=== PATIENT | female | born 1990 | race African-American/Black ===

== ENCOUNTER 2020-01-14 19:52 | Observation (INO) | payer MEDICAID ==
[~2020-01-14] VITALS: Ht 154.9 cm; Wt 66.2 kg
[2020-01-14] MEDS ORDERED: Morphine Sulfate 4mg/ml Inj (IV USE ONLY) IVP ONE (20:00)
--- NOTE | 2020-01-14 20:01 | Emergency Room Report ---
History of Present Illness General Chief Complaint: Complications Source: Patient Present Illness HPI Patient is a 29-year-old female approximately 13 weeks who presents to the ER complaining of suprapubic cramping and vaginal bleeding for 1 week. Patient states that she was told that she was having a miscarriage. She has had 2 prior miscarriages. She states that she was supposed to be admitted to an outside facility for D&C but was afraid of having surgery. She states that today her cramping increased and she had passage of a blood clot from her vagina. She denies any fever or chills. She denies any nausea or vomiting. Patient is G 10 P3 with 3 miscarriages and 3 abortions. Patient was brought in by paramedics. 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 Patient History Now: Yes Reviewed Nursing Documentation: PMH: Agreed; PSxH: Agreed Review of Systems All Other Systems: negative except mentioned in HPI Physical Exam Vital Signs Date Time Temp Pulse Resp B/P (MAP) Pulse Ox O2 Delivery O2 Flow Rate FiO2 01/14/20 19:48 98.6 80 20 123/53 (76) 98 Room Air Sp02 EP Interpretation: reviewed, normal General Appearance: no apparent distress, alert, GCS 15, non-toxic Head: normocephalic, atraumatic Eyes: bilateral eye normal inspection, bilateral eye PERRL ENT: hearing grossly normal, normal pharynx, no angioedema, normal voice Neck: full range of motion, supple/symm/no masses Respiratory: chest non-tender, lungs clear, normal breath sounds, speaking full sentences Cardiovascular #1: regular rate, rhythm, no edema Gastrointestinal: soft, no guarding, no rebound, other - Suprapubic tenderness to palpation Rectal: deferred Genitourinary: no CVA tenderness, other - Patient had about 400 cc of bright red blood from her vagina throughout her ER stay Musculoskeletal: normal range of motion, no calf tenderness Neurologic: motor strength/tone normal, oriented x3 Psychiatric: no suicidal/homicidal ideation Skin: no rash Lymphatic: no adenopathy Procedures Critical Care Time Critical Care Time Total critical care time: Approximately 35 minutes. Due to a high probability of clinically significant, life threatening deterioration, the patient required my highest level of preparedness to intervene emergently and I personally spent this critical care time directly and personally managing the patient. This critical care time included obtaining a history; examining the patient; pulse oximetry; ordering and review of studies; arranging urgent treatment with development of a management plan; evaluation of patient's response to treatment ; frequent reassessment; and, discussions with other providers.This critical care time was performed to assess and manage the high probability of imminent, life-threatening deterioration that could result in multi-organ failure. It was exclusive of separately billable procedures and treating other patients and teaching time. Please see MDM section and the rest of the note for further information on patient assessment and treatment. Medical Decision Making Diagnostic Impression: Primary Impression: Retained products of conception Additional Impressions: Hypokalemia Vaginal bleeding ER Course rad tech states the ultrasound looks like retained products of conception. Paging Dr. Coello who is on-call for SACK SORTER at 9:10 PM. I spoke with Dr. Coello at 9:57 PM. He states that he will take the patient to the OR. Patient has been preop and kept n.p.o. He will call in the operating room team at this time. Laboratory Tests Test 01/14/20 20:15 White Blood Count 8.3 K/UL (4.8-10.8) Red Blood Count 4.18 M/UL (4.20-5.40) L Hemoglobin 12.9 G/DL (12.0-16.0) Hematocrit 38.1 % (37.0-47.0) Mean Corpuscular Volume 91 FL (80-99) Mean Corpuscular Hemoglobin 30.8 PG (27.0-31.0) Mean Corpuscular Hemoglobin Concent 33.9 G/DL (32.0-36.0) Red Cell Distribution Width 13.5 % (11.6-14.8) Platelet Count 227 K/UL (150-450) Mean Platelet Volume 7.3 FL (6.5-10.1) Neutrophils (%) (Auto) 64.3 % (45.0-75.0) Lymphocytes (%) (Auto) 30.1 % (20.0-45.0) Monocytes (%) (Auto) 4.3 % (1.0-10.0) Eosinophils (%) (Auto) 0.6 % (0.0-3.0) Basophils (%) (Auto) 0.8 % (0.0-2.0) Prothrombin Time 11.9 SEC (9.30-11.50) H Prothrombin Time INR 1.1 (0.9-1.1) Activated Partial Thromboplast Time 24 SEC (23-33) Fibrinogen 369 mg/dL (200-400) Urine Color Red Urine Appearance Very cloudy Urine pH 5 (4.5-8.0) Urine Specific [place] 1.025 (1.005-1.035) Urine Protein 3+ (NEGATIVE) H Urine Glucose (UA) Negative (NEGATIVE) Urine Ketones 4+ (NEGATIVE) H Urine Blood 5+ (NEGATIVE) H Urine Nitrite Negative (NEGATIVE) Urine Bilirubin Negative (NEGATIVE) Urine Urobilinogen 1 MG/DL (0.0-1.0) H Urine Leukocyte Esterase 2+ (NEGATIVE) H Urine RBC Tntc /HPF (0 - 2) H Urine WBC 5-10 /HPF (0 - 2) H Urine Squamous Epithelial Cells Few /LPF (NONE/OCC) Urine Bacteria Few /HPF (NONE) Sodium Level 136 MMOL/L (136-145) Potassium Level 3.1 MMOL/L (3.5-5.1) L Chloride Level 102 MMOL/L (98-107) Carbon Dioxide Level 22 MMOL/L (21-32) Anion Gap 12 mmol/L (5-15) Blood Urea Nitrogen 9 mg/dL (7-18) Creatinine 0.8 MG/DL (0.55-1.30) Estimated Glomerular Filtration Rate > 60 mL/min (>60) Glucose Level 108 MG/DL (74-106) H Calcium Level 9.2 MG/DL (8.5-10.1) Total Bilirubin 0.3 MG/DL (0.2-1.0) Aspartate Amino Transferase (AST) 9 U/L (15-37) L Alanine Aminotransferase (ALT) 13 U/L (12-78) Alkaline Phosphatase 39 U/L (46-116) L Total Protein 7.8 G/DL (6.4-8.2) Albumin 4.3 G/DL (3.4-5.0) Globulin 3.5 g/dL Albumin/Globulin Ratio 1.2 (1.0-2.7) Lipase 50 U/L (73-393) L Human Chorionic Gonadotropin, Quant 946 mIU/mL (1-6) H Urine Opiates Screen Negative (NEGATIVE) Urine Barbiturates Screen Negative (NEGATIVE) Phencyclidine (PCP) Screen Negative (NEGATIVE) Urine Amphetamines Screen Negative (NEGATIVE) Urine Benzodiazepines Screen Negative (NEGATIVE) Urine Cocaine Screen Negative (NEGATIVE) Urine Marijuana (THC) Screen Positive (NEGATIVE) H EKG Diagnostic Results EKG Time: 22:04 EP Interpretation: Leah South MD Rate: normal - 82 bpm Rhythm: NSR ST Segments: no acute changes ASA given to the pt in ED: No Rhythm Strip Diag. Results Rhythm Strip Time: 21:57 EP Interpretation: yes - Leah South MD Rate: 72 bpm Rhythm: NSR, no PVC's, no ectopy Last Vital Signs Date Time Temp Pulse Resp B/P (MAP) Pulse Ox O2 Delivery O2 Flow Rate FiO2 01/14/20 19:48 98.6 80 20 123/53 (76) 98 Room Air Disposition: ADMITTED INPATIENT Condition: Critical Signed Out To: Awaiting insurance approval for admission. Patient signed out to Dr. Norris Additional Instructions: Please note that this report is being documented using [email or web address] technology. This can lead to erroneous entry secondary to incorrect interpretation by the dictating instrument. Leah South M.D. Jan 14, 2020 20:01
[2020-01-14 20:54] LABS: ANION GAP 12 mmol/L (5-15); BLOOD UREA NITROGEN 9 mg/dL (7-18); CALCIUM 9.2 MG/DL (8.5-10.1); CARBON DIOXIDE 22 MMOL/L (21-32); CHLORIDE 102 MMOL/L (98-107); CREATININE 0.8 MG/DL (0.55-1.30); POTASSIUM 3.1 MMOL/L (3.5-5.1); SODIUM 136 MMOL/L (136-145)
[2020-01-14 20:56] LABS: APPEARANCE,URINE VERY CLOUDY; BILIRUBIN, URINE NEGATIVE (NEGATIVE); GLUCOSE, URINE (UA) NEGATIVE (NEGATIVE); KETONES,URINE 4+ (NEGATIVE); LEUKOCYTE ESTERASE ,URINE 2+ (NEGATIVE); NITRITE,URINE NEGATIVE (NEGATIVE); PH,URINE 5 (4.5-8.0); PROTEIN,URINE 3+ (NEGATIVE); UROBILINOGEN,URINE 1 MG/DL (0.0-1.0)
[2020-01-14 20:59] LABS: ALANINE AMINOTRANSFERASE 13 U/L (12-78); ALBUMIN 4.3 G/DL (3.4-5.0); ALBUMIN/GLOBULIN RATIO 1.2 (1.0-2.7); ALKALINE PHOSPHATASE 39 U/L (46-116); ASPARTATE AMINO TRANSFERASE 9 U/L (15-37); BILIRUBIN,TOTAL 0.3 MG/DL (0.2-1.0); COLOR,URINE RED
[2020-01-14 21:08] LABS: INR 1.1 (0.9-1.1)
[2020-01-14 21:10] LABS: BASOPHILS % (AUTO) 0.8 % (0.0-2.0); EOSINOPHILS % (AUTO) 0.6 % (0.0-3.0); HEMATOCRIT 38.1 % (37.0-47.0); HEMOGLOBIN 12.9 G/DL (12.0-16.0); LYMPHOCYTES % (AUTO) 30.1 % (20.0-45.0); MEAN CORPUSCULAR VOLUME 91 FL (80-99); MONOCYTES % (AUTO) 4.3 % (1.0-10.0); NEUTROPHILS % (AUTO) 64.3 % (45.0-75.0); PLATELET COUNT 227 K/UL (150-450); RED BLOOD COUNT 4.18 M/UL (4.20-5.40); RED CELL DISTRIBUTION WIDTH 13.5 % (11.6-14.8); WHITE BLOOD COUNT 8.3 K/UL (4.8-10.8)
[2020-01-14 22:39] VITALS: BP 131/64
[2020-01-14] MEDS ORDERED: Sterile Water Irrig 1000ml IRRIG ONE (23:00)
[2020-01-14] MEDS ORDERED: NS Irrig 1000ml ONE (23:00)
[2020-01-14] MEDS ORDERED: Oxytocin 10 units/vial ONE (23:22)
[2020-01-14] MEDS ORDERED: Methylergonovine 0.2mg/ml Inj IM ONE (23:22)
[2020-01-14 23:44] VITALS: BP 122/69
[2020-01-14] MEDS ORDERED: Midazolam 2mg/2ml Inj ONE (23:44)
[2020-01-14] MEDS ORDERED: fentaNYL 100 mcg/2 mL IV ONE (23:44)
[2020-01-15] VITALS (10 sets, daily range): BP systolic 88–105; BP diastolic 43–66
[2020-01-15] MEDS ORDERED: Lidocaine 1% MPF 10mg/ml 5ml ONE (00:14)
[2020-01-15] MEDS ORDERED: Ketorolac 30mg Inj ONE (00:14)
--- NOTE | 2020-01-15 00:16 | Pre-Procedure Note/Attestation ---
Pre-Procedure Note/Attestation Complete Prior to Procedure Planned Procedure: not applicable Procedure Narrative: Dilation and Curettage Indications for Procedure Pre-Operative Diagnosis: Incomplete Attestation I attest that I discussed the nature of the procedure; its benefits; risks and complications; and alternatives (and the risks and benefits of such alternatives ), prior to the procedure, with the patient (or the patient's legal auto claim representative). I attest that, if there was a reasonable possibility of needing a blood transfusion, the patient (or the patient's legal auto claim representative) was given the [facility] standardized written summary, pursuant to the Angel Mansi Blood Safety Act ([place] Health and Safety Code # 1645, as amended). I attest that I re-evaluated the patient just prior to the surgery and that there has been no change in the patient's H&P, except as documented below: Flako Coello MD Jan 15, 2020 00:16
--- NOTE | 2020-01-15 00:20 | Brief Operative Note ---
Immediate Post Operative Note Operative Note Pre-op Diagnosis: Incomplete Procedure: D&C Post-op Diagnosis: Incomplete , large amount of retained POCs Post-op Diagnosis: same as pre-op Surgeon: Flako Coello Anesthesiologist: Luana Nicole Anesthesia: MAC Specimen: yes - POCs Complications: none Condition: stable Fluids: LR @125 cc/hr Estimated Blood Loss: minimal Drains: none Implant(s) used?: No Flako Coello MD Jan 15, 2020 00:20
[2020-01-15] MEDS ORDERED: fentaNYL 100 mcg/2 mL IV PRN (00:30)
[2020-01-15] MEDS ORDERED: HYDROcodone/Acetamin 5/325 tab ORAL PRN (00:30)
--- NOTE | 2020-01-15 00:35 | Immediate Post-Op Evaluation ---
Immediate Post-Op Evalulation Immediate Post-Op Evalulation Procedure: D&C Date of Evaluation: Jan 15, 2020 Time of Evaluation: 00:28 IV Fluids: 800 Blood Pressure Systolic: 101 Blood Pressure Diastolic: 43 Pulse Rate: 95 Respiratory Rate: 14 O2 Sat by Pulse Oximetry: 99 Nausea: No Vomiting: No Patient Status: awake, reacts, patent Hydration Status: adequate Drug: ancef Given Within 1 Hr of Incision: Yes Time Given: 23:50 Luana Brizuela CRNA Jan 15, 2020 00:35
--- NOTE | 2020-01-15 00:35 | Short Stay Surgery H&P ---
History of Present Illness History of Present Illness HPI Edy Sue is a 29 year old female who was admitted on Jan 14, 2020 at 22:17 for Retained Products Of Conception Patient History Allergies: Coded Allergies: No Known Allergies (Unverified , 01/14/20) PAST MEDICAL HISTORY: (1) Retained products of conception Review of Systems Cardiovascular: Denies: no symptoms, see HPI, hypertension, CAD - stable, angina, [place], CABG, dysrhythmia, CHF, valvular disease, rheumatic heart disease, peripheral vascular disease, source of infx - skin, source of infx-indw cath, source of infx-prosthesis, other Respiratory: Denies: no symptoms, see HPI, asthma, chronic bronchitis, pneumonia, COPD, URI, tuberculosis, sleep apnea, CPAP, home 02, other Skeletal: Denies: no symptoms, see HPI, osteroarthritis, rheumatoid arthritis, spinal disc disease, trauma, other Gastrointestinal: Denies: no symptoms, see HPI, obesity, peptic ulcer disease, gastro esophageal reflux disease, hiatal hernia, jaundice, hepatitis A,B,C, other Genitourinary: Denies: no symptoms, see HPI, renal insufficiency, endstage renal disease, dialysis, UTI, urinary retention, BPH, other Neurologic: Denies: no symptoms, see HPI, seizure, stroke/TIA, neuropathy, neuro muscular disease, other Endocrine: Denies: no symptoms, see HPI, diabetes - type 1, diabetes - type 2, thyroid, post menopausal, other Hematologic: Denies: no symptoms, see HPI, anemia, coagulopathy, prior transfusion, other Physical Exam Vital Signs Last Vital Signs Date Time Temp Pulse Resp B/P (MAP) Pulse Ox O2 Delivery O2 Flow Rate FiO2 01/14/20 23:45 98.6 82 18 122/69 99 Room Air Labs Laboratory Tests Test 01/14/20 20:15 White Blood Count 8.3 K/UL (4.8-10.8) Red Blood Count 4.18 M/UL (4.20-5.40) L Hemoglobin 12.9 G/DL (12.0-16.0) Hematocrit 38.1 % (37.0-47.0) Mean Corpuscular Volume 91 FL (80-99) Mean Corpuscular Hemoglobin 30.8 PG (27.0-31.0) Mean Corpuscular Hemoglobin Concent 33.9 G/DL (32.0-36.0) Red Cell Distribution Width 13.5 % (11.6-14.8) Platelet Count 227 K/UL (150-450) Mean Platelet Volume 7.3 FL (6.5-10.1) Neutrophils (%) (Auto) 64.3 % (45.0-75.0) Lymphocytes (%) (Auto) 30.1 % (20.0-45.0) Monocytes (%) (Auto) 4.3 % (1.0-10.0) Eosinophils (%) (Auto) 0.6 % (0.0-3.0) Basophils (%) (Auto) 0.8 % (0.0-2.0) Prothrombin Time 11.9 SEC (9.30-11.50) H Prothromb Time International Ratio 1.1 (0.9-1.1) Activated Partial Thromboplast Time 24 SEC (23-33) Fibrinogen 369 mg/dL (200-400) Urine Color Red Urine Appearance Very cloudy Urine pH 5 (4.5-8.0) Urine Specific [place] 1.025 (1.005-1.035) Urine Protein 3+ (NEGATIVE) H Urine Glucose (UA) Negative (NEGATIVE) Urine Ketones 4+ (NEGATIVE) H Urine Blood 5+ (NEGATIVE) H Urine Nitrite Negative (NEGATIVE) Urine Bilirubin Negative (NEGATIVE) Urine Urobilinogen 1 MG/DL (0.0-1.0) H Urine Leukocyte Esterase 2+ (NEGATIVE) H Urine RBC Tntc /HPF (0 - 2) H Urine WBC 5-10 /HPF (0 - 2) H Urine Squamous Epithelial Cells Few /LPF (NONE/OCC) Urine Bacteria Few /HPF (NONE) Sodium Level 136 MMOL/L (136-145) Potassium Level 3.1 MMOL/L (3.5-5.1) L Chloride Level 102 MMOL/L (98-107) Carbon Dioxide Level 22 MMOL/L (21-32) Anion Gap 12 mmol/L (5-15) Blood Urea Nitrogen 9 mg/dL (7-18) Creatinine 0.8 MG/DL (0.55-1.30) Estimat Glomerular Filtration Rate > 60 mL/min (>60) Glucose Level 108 MG/DL (74-106) H Calcium Level 9.2 MG/DL (8.5-10.1) Total Bilirubin 0.3 MG/DL (0.2-1.0) Aspartate Amino Transf (AST/SGOT) 9 U/L (15-37) L Alanine Aminotransferase (ALT/SGPT) 13 U/L (12-78) Alkaline Phosphatase 39 U/L (46-116) L Total Protein 7.8 G/DL (6.4-8.2) Albumin 4.3 G/DL (3.4-5.0) Globulin 3.5 g/dL Albumin/Globulin Ratio 1.2 (1.0-2.7) Lipase 50 U/L (73-393) L Human Chorionic Gonadotropin, Quant 946 mIU/mL (1-6) H Urine Opiates Screen Negative (NEGATIVE) Urine Barbiturates Screen Negative (NEGATIVE) Phencyclidine (PCP) Screen Negative (NEGATIVE) Urine Amphetamines Screen Negative (NEGATIVE) Urine Benzodiazepines Screen Negative (NEGATIVE) Urine Cocaine Screen Negative (NEGATIVE) Urine Marijuana (THC) Screen Positive (NEGATIVE) H Skin: normal HENT: normal Heart: normal Lungs: normal Abdomen: normal Extremities: normal Genitourinary: abnormal - Enlarged uterus, uterine bleeding Plan Plan of Care Urgent D&C Summary of Findings IUP, incomplete , Active Uterine Bleeding Attestation Are the patient's medical conditions optimized for surgery? Attestation Response: yes Flako Coello MD Jan 15, 2020 00:35
--- NOTE | 2020-01-15 00:39 | Anethesia Preoperative Eval ---
Anesthesia Pre-op PMH/ROS General Date of Evaluation: Jan 15, 2020 Time of Evaluation: 23:45 Anesthesiologist: debra ASA Score: ASA 2 Mallampati Score Class I : Soft palate, uvula, fauces, pillars visible Class II: Soft palate, uvula, fauces visible Class III: Soft palate, base of uvula visible Class IV: Only hard plate visible Mallampati Classification: Class II Surgeon: Oumou Diagnosis: Retained product of conception Surgical Procedure: D&C Anesthesia History: none Family History: no anesthesia problems Allergies: Coded Allergies: No Known Allergies (Unverified , 01/14/20) Medications: see eMAR Patient NPO?: Yes NPO Date: Jan 15, 2020 NPO Time: 08:00 Past Medical History Cardiovascular: Denies: HTN, CAD, [place], valve dz, arrhythmia, other Pulmonary: Denies: asthma, COPD, BRENDA, other Gastrointestinal/Genitourinary: Denies: GERD, CRI, ESRD, other Neurologic/Psychiatric: Denies: dementia, CVA, depression/anxiety, TIA, other HEENT: Denies: cataract (L), cataract (R), glaucoma, KAKE (L), KAKE (R), other Hematology/Immune: Reports: anemia PSxH Narrative: c/s Anesthesia Pre-op Phys. Exam Physician Exam Last Vital Signs Date Time Temp Pulse Resp B/P (MAP) Pulse Ox O2 Delivery O2 Flow Rate FiO2 01/14/20 23:45 98.6 82 18 122/69 99 Room Air Constitutional: NAD Neurologic: CN 2-12 intact Cardiovascular: RRR Gastrointestinal: S/NT/ND Airway Exam Mallampati Classification 2 Mallampati Score: Class II MO: full ROM: full Anesthesia Pre-op A/P Labs Hematology Test 01/14/20 20:15 White Blood Count 8.3 K/UL (4.8-10.8) Red Blood Count 4.18 M/UL (4.20-5.40) L Hemoglobin 12.9 G/DL (12.0-16.0) Hematocrit 38.1 % (37.0-47.0) Mean Corpuscular Volume 91 FL (80-99) Mean Corpuscular Hemoglobin 30.8 PG (27.0-31.0) Mean Corpuscular Hemoglobin Concent 33.9 G/DL (32.0-36.0) Red Cell Distribution Width 13.5 % (11.6-14.8) Platelet Count 227 K/UL (150-450) Mean Platelet Volume 7.3 FL (6.5-10.1) Neutrophils (%) (Auto) 64.3 % (45.0-75.0) Lymphocytes (%) (Auto) 30.1 % (20.0-45.0) Monocytes (%) (Auto) 4.3 % (1.0-10.0) Eosinophils (%) (Auto) 0.6 % (0.0-3.0) Basophils (%) (Auto) 0.8 % (0.0-2.0) Coagulation Test 01/14/20 20:15 Prothrombin Time 11.9 SEC (9.30-11.50) H Prothromb Time International Ratio 1.1 (0.9-1.1) Activated Partial Thromboplast Time 24 SEC (23-33) Fibrinogen 369 mg/dL (200-400) Chemistry Test 01/14/20 20:15 Sodium Level 136 MMOL/L (136-145) Potassium Level 3.1 MMOL/L (3.5-5.1) L Chloride Level 102 MMOL/L (98-107) Carbon Dioxide Level 22 MMOL/L (21-32) Anion Gap 12 mmol/L (5-15) Blood Urea Nitrogen 9 mg/dL (7-18) Creatinine 0.8 MG/DL (0.55-1.30) Estimat Glomerular Filtration Rate > 60 mL/min (>60) Glucose Level 108 MG/DL (74-106) H Calcium Level 9.2 MG/DL (8.5-10.1) Total Bilirubin 0.3 MG/DL (0.2-1.0) Aspartate Amino Transf (AST/SGOT) 9 U/L (15-37) L Alanine Aminotransferase (ALT/SGPT) 13 U/L (12-78) Alkaline Phosphatase 39 U/L (46-116) L Total Protein 7.8 G/DL (6.4-8.2) Albumin 4.3 G/DL (3.4-5.0) Globulin 3.5 g/dL Albumin/Globulin Ratio 1.2 (1.0-2.7) Lipase 50 U/L (73-393) L Human Chorionic Gonadotropin, Quant 946 mIU/mL (1-6) H Studies Pre-op Studies: EKG - SR Risk Assessment & Plan Assessment: covid Plan: MAC Status Change Before Surgery: No Pre-Antibiotics Drug: ancef Given Within 1 Hr of Incision: Yes Time Given: 23:45 Luana Brizuela CRNA Jan 15, 2020 00:39
--- NOTE | 2020-01-15 00:41 | 48 Hour Post Anesthesia Eval ---
Post Anesthesia Evaluation Procedure: D&C Date of Evaluation: Jan 15, 2020 Time of Evaluation: 00:40 Blood Pressure Systolic: 110 0: 60 Pulse Rate: 75 Respiratory Rate: 14 O2 Sat by Pulse Oximetry: 98 Airway: patent Nausea: No Vomiting: No Hydration Status: adequate Cardiopulmonary Status: stable Mental Status/LOC: patient returned to baseline Post-Anesthesia Complications: none Follow-up care needed: N/A Luana Brizuela CRNA Jan 15, 2020 00:40
[2020-01-15] MEDS ORDERED: D5 1/2NS 1,000 ML IV SCH (01:00)
--- NOTE | 2020-01-15 03:15 | Operative Note - Dictated ---
DATE OF OPERATION: 01/14/2020 The patient is a 29-year-old, 10 with multiple miscarriages and 2 C-sections. The patient underwent another with the understanding of last menstrual period timing. Upon entering the emergency room, the patient had copious bleeding, approximately 400 mL and it was decided to proceed to the operating room. The emergency team was called. The patient was consented and preparation was described and the procedure was undertaken. The patient was placed in the supine position. A MAC anesthesia was induced without complication. The patient was then placed in the dorsal lithotomy position. Perineum and abdomen were prepped in the usual fashion for the procedure. The procedure then continued with a preoperative exam where a large amount of clots were found in the vagina. The cervix was severely dilated with clots and tissue protruding through the cervix. At this time, some of the tissue was evacuated with the ring forceps. Suction curettage was performed with a 12 mm curette. The rest of the tissue was evacuated both with ring forceps and with sharp curette. When no other tissue was identified, the cervix was evaluated and found to be completely hemostatic. The patient was then placed in the supine position after all the instruments were removed from the vagina. The patient was transferred to the recovery room in stable condition. Flako Coello M.D. DR: KYRIE JOB#: [id number] CC:
[2020-01-15] MEDS ORDERED: D5 1/2NS 1000ml IV ONE (10:14)
--- NOTE | 2020-01-18 08:35 | Discharge Summary ---
Discharge Summary Hospital Course Date of Admission Jan 14, 2020 at 22:17 Date of Discharge Jan 15, 2020 at 10:15 Admitting Diagnosis Retained Products of conception Reason for Hospitalization: for surgical intervention HPI 29 years old female G 10 with multiple miscarriages. approximately 13 weeks presented to emergency department complaining of suprapubic cramping and vaginal bleeding for 1 week. Patient was told that she was having a miscarriage Patient stated that she was told that she required D&C , but she was afraid of having surgery. However cramping increased and she had passage of blood clots from her vagina. Patient presented to ED for further management. Vital signs remained stable. Stable hemoglobin and hematocrit, no leukocytosis. K-3.1. Rapid COVID-19 was negative. Potassium was replaced in ED. Patient admitted for surgical intervention Procedures s/p 01/14/[address] Smith dilatation and curettage Hospital Course patient required urgent D&C due to active uterine bleeding and incomplete . patient subsequently undergone D&C with evacuation of retained POCs patient tolerated procedure well. post procedure patient remained hemodynamically stable IV fluids provided patient slowly started on diet , antiemetic provided as needed patient was able to tolerate diet pain management was addressed as needed voided without difficulties ambulated patient was ready for discharge outpatient fup with her [employer]EL[employer]SULT[employer] FINAL DIAGNOSES Incomplete , Large amount of retained POCs s/p D&C Discharge Condition Upon Discharge: stable Discharge Vital Signs Last Vital Signs Date Time Temp Pulse Resp B/P (MAP) Pulse Ox O2 Delivery O2 Flow Rate FiO2 01/15/20 09:00 Room Air 01/15/20 08:00 98.0 78 18 100/61 (74) 100 01/15/20 00:50 3 Discharge Disposition Patient was discharged home Discharge Instructions Discharge Instructions Special Instructions I have been assigned to complete a D/C Summary on this account. I was not involved in the patient management Sheryl Clemens NP Jan 18, 2020 08:35
--- NOTE | 2020-01-20 13:50 | Diagnostic Imaging Report ---
EXAM: US Pelvis Transabdominal and Transvaginal, Complete CLINICAL HISTORY: abdominal pain, vaginal bleeding TECHNIQUE: Real-time complete transabdominal and transvaginal pelvic ultrasound with image documentation. Transvaginal imaging was used for better evaluation of the endometrium and adnexa. COMPARISON: No relevant prior studies available. FINDINGS: Uterus/cervix: Uterus measures 10.2 x 7.3 x 5.6 cm. Solid echogenic material is seen within the endocervical canal. There is a large amount of endocervical fluid. The endometrium measures up to 5 mm. No myometrial mass. Right ovary: The right ovary was not seen. Left ovary: The left ovary measures 2.2 x 1.5 x 2.4 cm. There is no evidence of torsion. Free fluid: There is no significant pelvic free fluid. Bladder: Unremarkable as visualized. Wall is normal thickness for degree of distention. IMPRESSION: Echogenic material seen within the endocervical canal, along with a moderate amount of fluid. Findings may reflect incomplete . Clinical correlation is recommended.
== END 2020-01-15 10:15 | disposition home or self-care (01) ==
LOC: EDBD 19:52 → EMR 21:04 → 3E 22:17 → INTOOBSV 22:17 → EDBEDREQ 22:20
DX: O03.4 Incomplete spontaneous abortion without complication (principal); I49.9 Cardiac arrhythmia, unspecified; E87.6 Hypokalemia
CPT/HCPCS: 36415; 59812; 76830; 76856; 80053; 80307; 81003; 83690; 84702; 85025; 85384; 85610; 85730; 86850; 86900; 86901; 93005; 94003; 96360; 96361; 96365; 96375; J0690; J1885; J2250; J2270; J2405; J2704; J3010; J3480; J7030; U0002; Z7502; Z7512; 94150; 99291; G0378; J2590